=== PATIENT | male | born 1935 | race Caucasian/White ===

== ENCOUNTER 2020-09-26 13:33 | Inpatient (IN) | payer MEDICARE, OTHER ==
[2020-09-26] MEDS ORDERED: ALBUTEROL HFA INHALER INHALATION STA (13:46)
--- NOTE | 2020-09-26 13:50 | ED ---
SOB HPI - General Chief Complaint: Shortness of Breath Stated Complaint: COVID+ Time Seen by Provider: 09/26/20 13:33 Source: patient, EMS Mode of arrival: EMS Limitations: no limitations - History of Present Illness Initial Comments: This is an 84-year-old male known history of COPD and states he was tested positive for Covid 19 2 days ago. By EMS today with complaints of increasing shortness of breath cough with phlegm production exertional dyspnea fevers and generalized weakness. He was found have saturations in the mid to low 80s on room air up to 94% on 5 L of oxygen. He had a temperature of 102.9 upon arrival. No other complaints or modifying factors at this time MD Complaint: shortness of breath, cough - Related Data Home Medications Medication Instructions Recorded Confirmed Albuterol Inhaler [Ventolin Hfa 1 - 2 puff INHALATION RT-QID PRN 09/26/20 09/26/20 Inhaler] Alendronate Sodium 70 mg PO SALVADOR 09/26/20 09/26/20 Aspirin EC [Ecotrin Low Dose] 81 mg PO DAILY 09/26/20 09/26/20 Atorvastatin [Lipitor] 40 mg PO HS 09/26/20 09/26/20 Carvedilol [Coreg] 6.25 mg PO BID 09/26/20 09/26/20 Cholecalciferol [Vitamin D3 (25 5,000 unit PO DAILY 09/26/20 09/26/20 Mcg = 1000 Iu)] Clopidogrel Bisulfate [Plavix] 75 mg PO DAILY 09/26/20 09/26/20 Levothyroxine Sodium [Synthroid] 175 mcg PO DAILY 09/26/20 09/26/20 Losartan/Hydrochlorothiazide 1 tab PO DAILY 09/26/20 09/26/20 [Hyzaar 100-25 Tablet] Magnesium Oxide [Mag-Ox] 250 mg PO DAILY 09/26/20 09/26/20 PARoxetine [Paxil] 20 mg PO HS 09/26/20 09/26/20 Pantoprazole Sodium [Protonix] 40 mg PO DAILY 09/26/20 09/26/20 Allergies Allergy/AdvReac Type Severity Reaction Status Date / Time No Known Allergies Allergy Verified 09/26/20 14:57 Review of Systems ROS Statement: Those systems with pertinent positive or pertinent negative responses have been documented in the HPI. ROS Other: All systems not noted in ROS Statement are negative. Past Medical History Past Medical History: COPD History of Any Multi-Drug Resistant Organisms: None Reported Past Surgical History: Tonsillectomy Additional Past Surgical History / Comment(s): cataracts, eye lid surgery, some sort of bypass in the groin Past Psychological History: Anxiety Smoking Status: Former smoker Past Alcohol Use History: Daily Past Drug Use History: None Reported General Exam - General Exam Comments Initial Comments: This is a well-developed well-nourished awake alert oriented 3 male Limitations: no limitations General appearance: alert Head exam: Present: atraumatic, normocephalic, normal inspection Eye exam: Present: normal appearance, PERRL, EOMI. Absent: scleral icterus, conjunctival injection, periorbital swelling ENT exam: Present: mucous membranes dry Neck exam: Present: normal inspection, full ROM, other (No stridor JVD or bruits). Absent: tenderness, meningismus, lymphadenopathy Respiratory exam: Present: decreased breath sounds. Absent: respiratory distress, wheezes, rales, rhonchi, stridor, chest wall tenderness Cardiovascular Exam: Present: regular rate, normal rhythm, normal heart sounds. Absent: systolic murmur, diastolic murmur, rubs, gallop, clicks GI/Abdominal exam: Present: soft, normal bowel sounds. Absent: distended, tenderness, guarding, rebound, rigid Extremities exam: Present: normal inspection, full ROM, normal capillary refill. Absent: tenderness, pedal edema, joint swelling, calf tenderness Back exam: Present: normal inspection Neurological exam: Present: alert, oriented X3, CN II-XII intact Psychiatric exam: Present: normal affect, normal mood Skin exam: Present: warm, dry, intact, normal color. Absent: rash Course Vital Signs 09/26/20 09/26/20 13:36 16:00 Temperature 102.9 F H 100.8 F H Pulse Rate 82 88 Respiratory 22 18 Rate Blood Pressure 159/75 140/70 O2 Sat by Pulse 94 L 95 Oximetry Medical Decision Making - Lab Data Result diagrams: 09/26/20 13:54 09/26/20 13:54 Lab Results 09/26/20 09/26/20 09/26/20 Range/Units 13:54 13:54 13:54 WBC 10.9 H (3.8-10.6) k/uL RBC 3.95 L (4.30-5.90) m/uL Hgb 13.0 (13.0-17.5) gm/dL Hct 37.7 L (39.0-53.0) % MCV 95.4 (80.0-100.0) fL MCH 32.9 (25.0-35.0) pg MCHC 34.5 (31.0-37.0) g/dL RDW 13.7 (11.5-15.5) % Plt Count 200 (150-450) k/uL MPV 8.9 Neutrophils % 86 % Lymphocytes % 7 % Monocytes % 4 % Eosinophils % 1 % Basophils % 1 % Neutrophils # 9.4 H (1.3-7.7) k/uL Lymphocytes # 0.8 L (1.0-4.8) k/uL Monocytes # 0.4 (0-1.0) k/uL Eosinophils # 0.1 (0-0.7) k/uL Basophils # 0.1 (0-0.2) k/uL PT 10.0 (9.0-12.0) sec INR 1.0 (<1.2) APTT 26.4 (22.0-30.0) sec D-Dimer 0.81 H (<0.60) mg/L FEU Sodium 128 L (137-145) mmol/L Potassium 4.5 (3.5-5.1) mmol/L Chloride 95 L (98-107) mmol/L Carbon Dioxide 22 (22-30) mmol/L Anion Gap 11 mmol/L BUN 37 H (9-20) mg/dL Creatinine 2.12 H (0.66-1.25) mg/dL Est GFR (CKD-EPI)AfAm 33 (>60 ml/min/1.73 sqM) Est GFR (CKD-EPI)NonAf 28 (>60 ml/min/1.73 sqM) Glucose 112 H (74-99) mg/dL Lactic Ac Sepsis Rflx Plasma Lactic Acid Mejia (0.7-2.0) mmol/L Calcium 8.9 (8.4-10.2) mg/dL Magnesium 1.8 (1.6-2.3) mg/dL Total Bilirubin 1.2 (0.2-1.3) mg/dL AST 44 (17-59) U/L ALT 24 (4-49) U/L Alkaline Phosphatase 43 (38-126) U/L Creatine Kinase 740 H (55-170) U/L Troponin I (0.000-0.034) ng/mL NT-Pro-B Natriuret Pep pg/mL Total Protein 6.9 (6.3-8.2) g/dL Albumin 4.0 (3.5-5.0) g/dL 09/26/20 09/26/20 09/26/20 Range/Units 13:54 13:54 13:54 WBC (3.8-10.6) k/uL RBC (4.30-5.90) m/uL Hgb (13.0-17.5) gm/dL Hct (39.0-53.0) % MCV (80.0-100.0) fL MCH (25.0-35.0) pg MCHC (31.0-37.0) g/dL RDW (11.5-15.5) % Plt Count (150-450) k/uL MPV Neutrophils % % Lymphocytes % % Monocytes % % Eosinophils % % Basophils % % Neutrophils # (1.3-7.7) k/uL Lymphocytes # (1.0-4.8) k/uL Monocytes # (0-1.0) k/uL Eosinophils # (0-0.7) k/uL Basophils # (0-0.2) k/uL PT (9.0-12.0) sec INR (<1.2) APTT (22.0-30.0) sec D-Dimer (<0.60) mg/L FEU Sodium (137-145) mmol/L Potassium (3.5-5.1) mmol/L Chloride (98-107) mmol/L Carbon Dioxide (22-30) mmol/L Anion Gap mmol/L BUN (9-20) mg/dL Creatinine (0.66-1.25) mg/dL Est GFR (CKD-EPI)AfAm (>60 ml/min/1.73 sqM) Est GFR (CKD-EPI)NonAf (>60 ml/min/1.73 sqM) Glucose (74-99) mg/dL Lactic Ac Sepsis Rflx Plasma Lactic Acid Mejia 2.5 H* (0.7-2.0) mmol/L Calcium (8.4-10.2) mg/dL Magnesium (1.6-2.3) mg/dL Total Bilirubin (0.2-1.3) mg/dL AST (17-59) U/L ALT (4-49) U/L Alkaline Phosphatase (38-126) U/L Creatine Kinase (55-170) U/L Troponin I <0.012 (0.000-0.034) ng/mL NT-Pro-B Natriuret Pep 604 pg/mL Total Protein (6.3-8.2) g/dL Albumin (3.5-5.0) g/dL 09/26/20 Range/Units 14:38 WBC (3.8-10.6) k/uL RBC (4.30-5.90) m/uL Hgb (13.0-17.5) gm/dL Hct (39.0-53.0) % MCV (80.0-100.0) fL MCH (25.0-35.0) pg MCHC (31.0-37.0) g/dL RDW (11.5-15.5) % Plt Count (150-450) k/uL MPV Neutrophils % % Lymphocytes % % Monocytes % % Eosinophils % % Basophils % % Neutrophils # (1.3-7.7) k/uL Lymphocytes # (1.0-4.8) k/uL Monocytes # (0-1.0) k/uL Eosinophils # (0-0.7) k/uL Basophils # (0-0.2) k/uL PT (9.0-12.0) sec INR (<1.2) APTT (22.0-30.0) sec D-Dimer (<0.60) mg/L FEU Sodium (137-145) mmol/L Potassium (3.5-5.1) mmol/L Chloride (98-107) mmol/L Carbon Dioxide (22-30) mmol/L Anion Gap mmol/L BUN (9-20) mg/dL Creatinine (0.66-1.25) mg/dL Est GFR (CKD-EPI)AfAm (>60 ml/min/1.73 sqM) Est GFR (CKD-EPI)NonAf (>60 ml/min/1.73 sqM) Glucose (74-99) mg/dL Lactic Ac Sepsis Rflx Y Plasma Lactic Acid Mejia (0.7-2.0) mmol/L Calcium (8.4-10.2) mg/dL Magnesium (1.6-2.3) mg/dL Total Bilirubin (0.2-1.3) mg/dL AST (17-59) U/L ALT (4-49) U/L Alkaline Phosphatase (38-126) U/L Creatine Kinase (55-170) U/L Troponin I (0.000-0.034) ng/mL NT-Pro-B Natriuret Pep pg/mL Total Protein (6.3-8.2) g/dL Albumin (3.5-5.0) g/dL - EKG Data -: EKG Interpreted by Me EKG shows normal: sinus rhythm (EKG sinus rhythm with first-degree AV block rate 82. Interval 288 QRS 114 QT since QTC 392/457 left exodeviation incomplete left bundle-branch block) - Radiology Data Radiology results: report reviewed (I did review the pain and report evidence of increase), image reviewed Disposition Clinical Impression: COVID-19, Dyspnea, Febrile illness, acute, Hyponatremia syndrome, Acute bronchospasm, Chronic renal failure syndrome Disposition: ADMITTED IP TO THIS [facility] Condition: Fair Referrals: Nonstaff,Physician [REFERRING] - 1-2 days
[2020-09-26 14:11] LABS: Basophils # (A) 0.1 k/uL (0-0.2); Basophils % (A) 1 %; Eosinophils # (A) 0.1 k/uL (0-0.7); Eosinophils % (A) 1 %; HCT 37.7 % (39.0-53.0); Lymphocytes # (A) 0.8 k/uL (1.0-4.8); Lymphocytes % (A) 7 %; MCH 32.9 pg (25.0-35.0); MCHC 34.5 g/dL (31.0-37.0); MCV 95.4 fL (80.0-100.0); Mean Platelet Volume 8.9; Monocytes # (A) 0.4 k/uL (0-1.0); Monocytes % (A) 4 %; Neutrophils # (A) 9.4 k/uL (1.3-7.7); Neutrophils % (A) 86 %; Platelet Count 200 k/uL (150-450); RBC 3.95 m/uL (4.30-5.90); RDW 13.7 % (11.5-15.5); WBC 10.9 k/uL (3.8-10.6)
--- NOTE | 2020-09-26 14:17 | XR ---
EXAMINATION TYPE: XR chest 2V DATE OF EXAM: 09/26/2020 COMPARISON: NONE HISTORY: Dyspnea. TECHNIQUE: Frontal and lateral views of the chest are obtained. FINDINGS: Cardiomegaly is present with atherosclerotic thoracic aorta. Chronic parenchymal change ba ckground with suspected mild interstitial edema and tiny left pleural effusion. Post surgical change to the thoracolumbar spine is partially imaged. Vertebroplasty suspected level of just above superior site of surgery. Correlate clinically. Advanced degenerative changes bilateral glenohumeral joints. Atherosclerotic change in the abdominal aorta noted on lateral view. IMPRESSION: Chronic changes and cardiomegaly with mild interstitial edema and tiny left pleural effu chely. Correlate for CHF exacerbation.
[2020-09-26 14:24] LABS: Calcium 8.9 mg/dL (8.4-10.2); Magnesium 1.8 mg/dL (1.6-2.3); Total Bilirubin 1.2 mg/dL (0.2-1.3); Total Protein 6.9 g/dL (6.3-8.2)
[2020-09-26 14:32] LABS: Partial Thromboplastin Time 26.4 sec (22.0-30.0)
[2020-09-26 14:38] LABS: D-Dimer 0.81 mg/L FEU (<0.60)
[2020-09-26 14:39] LABS: Potassium 4.5 mmol/L (3.5-5.1)
[2020-09-26] MEDS ORDERED: ACETAMINOPHEN TAB 325 MG TAB PO PRN (16:20)
[2020-09-26] MEDS ORDERED: CHOLECALCIFEROL 1,000 UNIT TAB PO SCH (16:30)
[2020-09-26] MEDS ORDERED: NALOXONE 0.4 MG/ML 1 ML VIAL IV PRN (16:51)
[2020-09-26] MEDS: ZINC SULFATE 220 MG CAP PO SCH (16:55)
[2020-09-26] MEDS: FAMOTIDINE 20 MG TAB PO SCH (16:55)
[2020-09-26] MEDS: ASCORBIC ACID 500 MG TAB PO SCH (16:55)
[2020-09-26] MEDS: DEXAMETHASONE SOD PHOSPHATE 10 MG/ML 1 ML VIAL IV SCH (16:55)
[2020-09-26] MEDS: SODIUM CHLORIDE 0.9% 1,000 ML IV SCH (17:06)
[2020-09-26 17:24] LABS: Magnesium 1.7 mg/dL (1.6-2.3)
[2020-09-26] MEDS ORDERED: ONDANSETRON 4 MG/2 ML VIAL IVP PRN (17:34)
[2020-09-26] MEDS ORDERED: bisacodyL 5 MG TABLET.DR PO PRN (17:34)
[2020-09-26 17:37] LABS: C Reactive Protein 249.8 mg/L (<10.0)
--- NOTE | 2020-09-26 17:42 | P.HPIM ---
History of Present Illness H&P Date: 09/26/20 Chief Complaint: shortness of breath Patient is an 84-year-old male with a history of COPD, hypertension, and peripheral arterial disease who presented to the ER splint shortness of breath. He had been diagnosed with Covid 19 2 days prior to admission. His symptoms had started on 09/21. On arrival to the ER he was found be hypoxic. He was requiring 5 L nasal cannula to sat 94%. Temperature was 102.9. Laboratory analysis showed a white blood cell count 10.9, lymphocytes 0.8, d-dimer 0.81, sodium 128, BUN 37, creatinine 2.12 (patient denies any history of kidney pro blems), lactic acid 2.5, and creatine kinase 740. Influenza A and B were negative. Chest x-ray demonstrated mild interstitial edema with a tiny left pleural effusion and concerns for congestive heart failure. BNP was checked and normal at 604 area is given a dose of albuterol and regions were made for admission. He was diagnosed with Covid 19 pneumonitis as well as hyponatremia, acute kidney injury, and dehydration. He was started on Decadron, albuterol [id number], zinc, vitamin C, vitamin D, Pepcid, and melatonin. Pulmonary was consulted regarding Remdesivir. Patient seen and examined at bedside. He reports that he started noticing symptoms on 09/21. He was having a cough are active of a white sputum, shortness of breath, fatigue, and diffuse muscle cramping. He also noted some fevers and chills at home. His shortness of breath and fatigue worsened and his work of breathing increased today so he presented to the emergency department. He reports that he has not lost his sense of taste or smell however he has had a low appetite and has not been eating or drinking much. He reports that he has not had any nausea, vomiting, or diarrhea. He lives alone and denies any known Covid 19 exposures. Follows with area director of home health sales Follows with area director of home health sales Mary Jaime. Review of Systems Pertinent positives and negatives as discussed in HPI, a complete review of systems was performed and all other systems are negative. Past Medical History Past Medical History: COPD, Hypertension Additional Past Medical History / Comment(s): Hypothyroidism, anxiety, high cholesterol, peripheral arterial disease History of Any Multi-Drug Resistant Organisms: None Reported Past Surgical History: Tonsillectomy Additional Past Surgical History / Comment(s): cataracts, eye lid surgery, arterial bypass in the groin region, spinal fusion Past Psychological History: Anxiety Smoking Status: Former smoker Past Alcohol Use History: None Reported Past Drug Use History: None Reported Additional History: Lives at home alone, uses a cane, not chronically on oxygen Medications and Allergies Home Medications Medication Instructions Recorded Confirmed Type Albuterol Inhaler [Ventolin Hfa 1 - 2 puff INHALATION RT-QID PRN 09/26/20 09/26/20 History Inhaler] Alendronate Sodium 70 mg PO SALVADOR 09/26/20 09/26/20 History Aspirin EC [Ecotrin Low Dose] 81 mg PO DAILY 09/26/20 09/26/20 History Atorvastatin [Lipitor] 40 mg PO HS 09/26/20 09/26/20 History Carvedilol [Coreg] 6.25 mg PO BID 09/26/20 09/26/20 History Cholecalciferol [Vitamin D3 (25 5,000 unit PO DAILY 09/26/20 09/26/20 History Mcg = 1000 Iu)] Clopidogrel Bisulfate [Plavix] 75 mg PO DAILY 09/26/20 09/26/20 History Levothyroxine Sodium [Synthroid] 175 mcg PO DAILY 09/26/20 09/26/20 History Losartan/Hydrochlorothiazide 1 tab PO DAILY 09/26/20 09/26/20 History [Hyzaar 100-25 Tablet] Magnesium Oxide [Mag-Ox] 250 mg PO DAILY 09/26/20 09/26/20 History PARoxetine [Paxil] 20 mg PO HS 09/26/20 09/26/20 History Pantoprazole Sodium [Protonix] 40 mg PO DAILY 09/26/20 09/26/20 History Allergies Allergy/AdvReac Type Severity Reaction Status Date / Time No Known Allergies Allergy Verified 09/26/20 14:57 Physical Exam Osteopathic Statement: *. No significant issues noted on an osteopathic structural exam other than those noted in the History and Physical/Consult. Vitals: Vital Signs Temp Pulse Resp BP Pulse Ox 09/26/20 16:00 100.8 F H 88 18 140/70 95 09/26/20 13:36 102.9 F H 82 22 159/75 94 L Intake and Output 09/26/20 09/26/20 09/26/20 06:59 14:59 22:59 Other: Weight 117.934 kg General: Ill-appearing, moderate distress, appears younger than stated age, diaphoretic Derm: warm, moist Head: atraumatic, normocephalic, symmetric Eyes: EOMI, no lid lag, anicteric sclera, pupils equal round reactive to light ENT: Nose and ears atraumatic, no thrush, no pharyngeal erythema Neck: No thyromegaly, no cervical lymphadenopathy, trachea midline, supple Mouth: no lip lesion, mucus membranes dry Cardiovascular: S1S2 tachycardic, no murmur, positive posterior tibial pulse bilateral, trace edema, capillary refill less than 2 seconds Lungs: Coarse breath sounds bilateral with diffuse wheezing, accessory muscle use with sternal retractions, 3 word conversational dyspnea Abdominal: soft, nontender to palpation, no guarding, no appreciable organomegaly, normal bowel sounds Ext: no gross muscle atrophy, muscle strength muscle strength 5 out of 5 in all 4 extremities, no contractures Neuro: CN II-XI grossly intact, light touch intact all 4 extremities, finger to nose within normal limits, Psych: Alert, oriented, appropriate affect Results CBC & Chem 7: 09/26/20 13:54 09/26/20 13:54 Labs: Abnormal Lab Results - Last 24 Hours (Table) 09/26/20 09/26/20 09/26/20 Range/Units 13:54 13:54 13:54 WBC 10.9 H (3.8-10.6) k/uL RBC 3.95 L (4.30-5.90) m/uL Hct 37.7 L (39.0-53.0) % Neutrophils # 9.4 H (1.3-7.7) k/uL Lymphocytes # 0.8 L (1.0-4.8) k/uL Fibrinogen (200-500) mg/dL D-Dimer 0.81 H (<0.60) mg/L FEU Sodium 128 L (137-145) mmol/L Chloride 95 L (98-107) mmol/L BUN 37 H (9-20) mg/dL Creatinine 2.12 H (0.66-1.25) mg/dL Glucose 112 H (74-99) mg/dL Plasma Lactic Acid Mejia (0.7-2.0) mmol/L Creatine Kinase 740 H (55-170) U/L 09/26/20 09/26/20 Range/Units 13:54 16:44 WBC (3.8-10.6) k/uL RBC (4.30-5.90) m/uL Hct (39.0-53.0) % Neutrophils # (1.3-7.7) k/uL Lymphocytes # (1.0-4.8) k/uL Fibrinogen 597 H (200-500) mg/dL D-Dimer (<0.60) mg/L FEU Sodium (137-145) mmol/L Chloride (98-107) mmol/L BUN (9-20) mg/dL Creatinine (0.66-1.25) mg/dL Glucose (74-99) mg/dL Plasma Lactic Acid Mejia 2.5 H* (0.7-2.0) mmol/L Creatine Kinase (55-170) U/L Chest x-ray: report reviewed, image reviewed (Bilateral interstitial infiltrates) Thrombosis Risk Factor Assmnt - DVT/VTE Prophylaxis DVT/VTE Prophylaxis: Pharmacologic Prophylaxis ordered Assessment and Plan Assessment: Covid 19 pneumonitis, acute hypoxic respiratory failure - Dexamethasone day #11/11 - Remdesivir: Awaiting pulmonary consultation - Convalsecent plasma: not considered at this point - Zinc, vitamin C, vitamin D, Pepcid, melatonin - Albuterol COPD with acute exacerbation -Continue with dexamethasone -Scheduled and when necessary bronchodilators -Pulmonary consultation Hyponatremia secondary to dehydration -IV fluids -Recheck basic metabolic profile in a.m. Acute kidney injury versus chronic kidney disease -No baseline labs -Hold losartan, hydrochlorothiazide -IV fluids -Avoid additional nephrotoxic agents -Repeat basic metabolic profile in a.m. Chronic: Hypertension Peripheral arterial disease Hypothyroidism Hx tobacco abuse The patient is admitted with an anticipated greater than 2 midnight stay for evaluation of Covid 19 pneumonia Surrogate decision-maker: Eldest daughter CODE STATUS: Full DVT prophylaxis: Lovenox Discussed with: Patient, nursing, ED physician Anticipated discharge date: 4-[address]: Home with home health A total of 35 minutes was spent on the care of this complex patient more than 50% of the time was spent in counseling and care coordination.
[2020-09-26] MEDS: ALBUTEROL HFA INHALER INHALATION SCH (19:38)
[2020-09-26] MEDS: carvediloL 6.25 MG TAB PO SCH (19:47)
[2020-09-26] MEDS: ATORVASTATIN 40 MG TAB PO SCH (22:07)
[2020-09-26] MEDS: PARoxetine 20 MG TAB PO SCH (22:07)
[2020-09-26] MEDS: MELATONIN 5 MG TABLET PO SCH (22:08)
[2020-09-26 23:31] LABS: Ferritin 561.4 ng/mL (22.0-322.0)
[2020-09-27] MEDS: SODIUM CHLORIDE 0.9% 1,000 ML IV SCH ×3 (02:55→19:58)
[2020-09-27] MEDS: ALBUTEROL HFA INHALER INHALATION SCH ×5 (03:10→18:53)
[2020-09-27] MEDS ORDERED: LEVOTHYROXINE 75 MCG TAB PO SCH (06:30)
[2020-09-27] MEDS ORDERED: LEVOTHYROXINE 100 MCG TAB PO SCH (06:30)
[2020-09-27 06:57] LABS: Basophils % (A) 0 %; Eosinophils % (A) 0 %; HCT 37.1 % (39.0-53.0); Lymphocytes # (A) 0.8 k/uL (1.0-4.8); Lymphocytes % (A) 8 %; MCH 31.8 pg (25.0-35.0); MCHC 32.4 g/dL (31.0-37.0); MCV 98.1 fL (80.0-100.0); Mean Platelet Volume 9.1; Monocytes # (A) 0.4 k/uL (0-1.0); Monocytes % (A) 5 %; Neutrophils % (A) 86 %; Platelet Count 207 k/uL (150-450); RBC 3.78 m/uL (4.30-5.90); RDW 14.4 % (11.5-15.5); WBC 9.3 k/uL (3.8-10.6)
[2020-09-27] MEDS: FAMOTIDINE 20 MG TAB PO SCH (08:02)
[2020-09-27] MEDS: DEXAMETHASONE SOD PHOSPHATE 10 MG/ML 1 ML VIAL IV SCH (08:02)
[2020-09-27] MEDS: carvediloL 6.25 MG TAB PO SCH ×2 (08:02→16:49)
[2020-09-27] MEDS: ASCORBIC ACID 500 MG TAB PO SCH (08:02)
[2020-09-27] MEDS: ZINC SULFATE 220 MG CAP PO SCH (08:03)
[2020-09-27] MEDS ORDERED: CLOPIDOGREL 75 MG TAB PO SCH (09:00)
[2020-09-27] MEDS ORDERED: PANTOPRAZOLE 40 MG TABLET PO SCH (09:00)
[2020-09-27] MEDS ORDERED: CHOLECALCIFEROL 1,000 UNIT TAB PO SCH (09:00)
[2020-09-27] MEDS ORDERED: LOSARTAN-HCTZ 50-12.5 MG 1 EACH TAB PO SCH (09:00)
[2020-09-27] MEDS ORDERED: ASPIRIN 81 MG PO SCH (09:00)
[2020-09-27] MEDS ORDERED: MAGNESIUM OXIDE 400 MG TAB PO SCH (09:00)
[2020-09-27 09:53] LABS: African American GFR (CKD) 45.8 (60.0-200.0); Albumin 3.7 g/dL (3.80-4.90); Albumin/Globulin Ratio 1.76 (1.60-3.17); Calcium 8.4 mg/dL (8.7-10.3); Globulin 2.1 g/dL (1.6-3.3); Non-African American GFR(CKD) 39.5 (60.0-200.0); Potassium 4.2 mmol/L (3.5-5.5); Total Bilirubin 0.8 mg/dL (0.2-1.2); Total Protein 5.8 g/dL (6.2-8.2)
[2020-09-27 11:10] LABS: C Reactive Protein 256.5 mg/L (<10.0)
[2020-09-27] MEDS ORDERED: REMDESIVIR 200 MG in SODIUM CHLORIDE 0.9% 250 ML IVPB ONE (15:00)
--- NOTE | 2020-09-27 16:28 | P.CNPUL ---
History of Present Illness Consult date: 09/27/20 Requesting physician: Cheryl Bustillo Reason for consult: dyspnea, abnormal CXR/CT Chief complaint: Shortness of breath, cough congestion, CoVID +2 days prior to admission History of present illness: This is a pleasant 84-year-old gentleman who follows with Dr. Johnson as his primary care provider. He has a history of hypertension, hypothyroidism, chronic obstructive pulmonary disease, previous tobacco dependence, anxiety, hyperlipidemia, peripheral arterial disease. 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 Steel Eng[employer]. He is maintained on albuterol in the outpatient setting. He presented to the emergency room yesterday with complaints of increasing shortness of breath cough and congestion. He states he did test positive for CoVID 19 2 days prior to his arrival. Chest x-ray reveals chronic changes and cardiomegaly with mild interstitial edema and tiny left pleural effusion. Correlate for CHF exacerbation. We'll seen today in consultation on the regular medical floor. Awake and alert in no acute distress. Maintaining O2 saturations in the 90s on 5 L/m per nasal cannula. Currently afebrile. He did have a presenting T-max of 102.9. White count 9.3. Hemoglobin 12.0. D-dimer 0.97. Sodium 134. Potassium 4.2. Creatinine 1.6. Troponin 0.049, 0.157. C- reactive protein 256. LDH 920. Ferritin 561. Influenza screen negative. He's been initiated on Decadron, melatonin, vitamin C, vitamin D, Pepcid, zinc. Review of Systems REVIEW OF SYSTEMS: CONSTITUTIONAL: Febrile illness, weakness. Denies any recent significant weight loss or weight gain. EYES: Denies change in vision. EARS, NOSE, MOUTH, THROAT: Denies headaches, denies sore throat. CARDIOVASCULAR: Denies chest pain, palpitations or syncopal episodes. RESPIRATORY: Positive for shortness of breath, cough, congestion no hemoptysis. GASTROINTESTINAL: Denies change in appetite, denies abdominal pain GENITOURINARY: Denies hematuria, denies infections. MUSKULOSKELETAL: Denies pain, denies swelling. INTEGUMENTARY: Denies rash, denies eczema. NEUROLOGICAL: Denies recent memory loss, no recent seizure activity. PSYCHIATRIC: Denies anxiety, denies depression. HEMATOLOGIC/LYMPHATIC: Denies anemia, denies enlarged lymph nodes. Past Medical History Past Medical History: COPD, Hypertension Additional Past Medical History / Comment(s): Hypothyroidism, anxiety, high cholesterol, peripheral arterial disease History of Any Multi-Drug Resistant Organisms: None Reported Past Surgical History: Tonsillectomy Additional Past Surgical History / Comment(s): cataracts, eye lid surgery, arterial bypass in the groin region, spinal fusion Past Anesthesia/Blood Transfusion Reactions: No Reported Reaction Past Psychological History: Anxiety Smoking Status: Former smoker Past Alcohol Use History: None Reported Past Drug Use History: None Reported Medications and Allergies Home Medications Medication Instructions Recorded Confirmed Type Albuterol Inhaler [Ventolin Hfa 1 - 2 puff INHALATION RT-QID PRN 09/26/20 09/26/20 History Inhaler] Alendronate Sodium 70 mg PO SALVADOR 09/26/20 09/26/20 History Aspirin EC [Ecotrin Low Dose] 81 mg PO DAILY 09/26/20 09/26/20 History Atorvastatin [Lipitor] 40 mg PO HS 09/26/20 09/26/20 History Carvedilol [Coreg] 6.25 mg PO BID 09/26/20 09/26/20 History Cholecalciferol [Vitamin D3 (25 5,000 unit PO DAILY 09/26/20 09/26/20 History Mcg = 1000 Iu)] Clopidogrel Bisulfate [Plavix] 75 mg PO DAILY 09/26/20 09/26/20 History Levothyroxine Sodium [Synthroid] 175 mcg PO DAILY 09/26/20 09/26/20 History Losartan/Hydrochlorothiazide 1 tab PO DAILY 09/26/20 09/26/20 History [Hyzaar 100-25 Tablet] Magnesium Oxide [Mag-Ox] 250 mg PO DAILY 09/26/20 09/26/20 History PARoxetine [Paxil] 20 mg PO HS 09/26/20 09/26/20 History Pantoprazole Sodium [Protonix] 40 mg PO DAILY 09/26/20 09/26/20 History Allergies Allergy/AdvReac Type Severity Reaction Status Date / Time No Known Allergies Allergy Verified 09/26/20 14:57 Physical Exam Vitals: Vital Signs Temp Pulse Pulse Resp BP BP Pulse Ox 09/27/20 14:00 98 F 61 120/67 92 L 09/27/20 10:00 99.1 F 78 160/63 94 L 09/27/20 08:00 65 18 09/27/20 05:39 98.1 F 65 18 140/62 94 L 09/27/20 02:00 98.2 F 71 22 102/50 94 L 09/26/20 22:00 99.3 F 77 16 110/70 94 L 09/26/20 19:39 100.2 F H 84 18 143/64 95 Intake and Output 09/27/20 09/27/20 09/27/20 06:59 14:59 22:59 Intake Total 1040 Balance 1040 Intake: Intake, IV Titration 1040 Amount Sodium Chloride 0.9% 1, 1040 000 ml @ 130 mls/hr IV . Q7H42M [facility] Rx#:[id number] Other: Voiding Method Toilet Urinal # Voids 3 3 GENERAL EXAM: Alert, pleasant 84-year-old gentleman, on 5 L nasal cannula with O2 saturation 92%, comfortable in no apparent distress. HEAD: Normocephalic. EYES: Normal reaction of pupils, equal size. NOSE: Clear with pink turbinates. THROAT: No erythema or exudates. NECK: No masses, no JVD. CHEST: No chest wall deformity. LUNGS: Equal air entry with bilateral scattered rhonchi. CVS: S1 and S2 normal with no audible murmur, regular rhythm. ABDOMEN: No hepatosplenomegaly, normal bowel sounds, no guarding or rigidity. SPINE: No scoliosis or deformity SKIN: No rashes CENTRAL NERVOUS SYSTEM: No focal deficits, tone is normal in all 4 extremities. EXTREMITIES: There is no peripheral edema. No clubbing, no cyanosis. Peripheral pulses are intact. Results - Laboratory Findings CBC and BMP: 09/27/20 05:20 09/27/20 05:20 PT/INR, D-dimer PT 10.0 sec (9.0-12.0) 09/26/20 13:54 INR 1.0 (<1.2) 09/26/20 13:54 D-Dimer 0.97 mg/L FEU (<0.60) H 09/27/20 10:06 Abnormal lab findings: Abnormal Labs 09/26/20 09/26/20 09/26/20 13:54 13:54 13:54 WBC 10.9 H RBC 3.95 L Hgb Hct 37.7 L Neutrophils # 9.4 H Lymphocytes # 0.8 L Fibrinogen D-Dimer 0.81 H Sodium 128 L Chloride 95 L BUN 37 H Creatinine 2.12 H Est GFR (CKD-EPI)AfAm Est GFR (CKD-EPI)NonAf Glucose 112 H Plasma Lactic Acid Mejia Calcium Ferritin AST Lactate Dehydrogenase Creatine Kinase 740 H Troponin I C-Reactive Protein Total Protein Albumin 09/26/20 09/26/20 09/26/20 13:54 16:44 16:44 WBC RBC Hgb Hct Neutrophils # Lymphocytes # Fibrinogen 597 H D-Dimer Sodium Chloride BUN Creatinine Est GFR (CKD-EPI)AfAm Est GFR (CKD-EPI)NonAf Glucose Plasma Lactic Acid Mejia 2.5 H* Calcium Ferritin 561.4 H AST Lactate Dehydrogenase 679 H Creatine Kinase 704 H Troponin I C-Reactive Protein 249.8 H Total Protein Albumin 09/26/20 09/27/20 09/27/20 16:44 05:20 05:20 WBC RBC 3.78 L Hgb 12.0 L Hct 37.1 L Neutrophils # 8.0 H Lymphocytes # 0.8 L Fibrinogen D-Dimer Sodium 134 L Chloride BUN 32.0 H Creatinine 1.6 H Est GFR (CKD-EPI)AfAm 45.8 L Est GFR (CKD-EPI)NonAf 39.5 L Glucose 124 H Plasma Lactic Acid Mejia Calcium 8.4 L Ferritin AST 47 H Lactate Dehydrogenase Creatine Kinase Troponin I 0.049 H* C-Reactive Protein Total Protein 5.8 L Albumin 3.70 L 09/27/20 09/27/20 09/27/20 10:06 10:06 10:06 WBC RBC Hgb Hct Neutrophils # Lymphocytes # Fibrinogen D-Dimer 0.97 H Sodium Chloride BUN Creatinine Est GFR (CKD-EPI)AfAm Est GFR (CKD-EPI)NonAf Glucose Plasma Lactic Acid Mejia Calcium Ferritin AST Lactate Dehydrogenase 920 H Creatine Kinase Troponin I 0.157 H* C-Reactive Protein 256.5 H Total Protein Albumin - Diagnostic Findings Chest x-ray: image reviewed Assessment and Plan Assessment: 1 Acute hypoxic respiratory failure secondary to acute CoVID 19 pneumonitis 2 Febrile illness secondary to above, improved 3 Acute exacerbation of chronic obstructive pulmonary disease secondary to above 4 Acute kidney injury 5 Hypertension 6 Hypothyroidism 7 Peripheral arterial disease 8 History of chronic tobacco dependence. Plan: The patient was seen and evaluated by Dr. Richmond Chest x-ray and labs reviewed We will initiate Remdesivir today Continue Decadron, Pepcid, melatonin, vitamin C, vitamin D, zinc Add Lovenox 40 mg subcu daily Repeat chest x-ray, d-dimer, inflammatory markers in a.m. Titrate down the FiO2 as tolerated We will continue to follow and make further recommendations based on his clinical status I, the cosigning physician, performed a history & physical examination of the patient. Lungs sounds with bilateral scattered rhonchi. Maintaining good O2 saturations in the 90s on 5 L/m per nasal cannula. I discussed the assessment and plan of care with my nurse practitioner, Eneida Butt. I attest to the above consultation as dictated by her. Time with Patient: Greater than 30
[2020-09-27] MEDS ORDERED: ENOXAPARIN 40 MG/0.4 ML SYRINGE SQ SCH (16:30)
[2020-09-27] MEDS: ATORVASTATIN 40 MG TAB PO SCH (19:54)
[2020-09-27] MEDS: MELATONIN 5 MG TABLET PO SCH (19:54)
[2020-09-27] MEDS: PARoxetine 20 MG TAB PO SCH (19:54)
--- NOTE | 2020-09-27 20:17 | P.PN ---
Subjective Progress Note Date: 09/27/20 (delayed charting seen at 120 5) Principal diagnosis: shortness of breath Patient is an 84-year-old male with a history of COPD, hypertension, and peripheral arterial disease who presented to the ER splint shortness of breath. He had been diagnosed with Covid 19 2 days prior to admission. His symptoms had started on 09/21. On arrival to the ER he was found be hypoxic. He was requiring 5 L nasal cannula to sat 94%. Temperature was 102.9. Laboratory analysis showed a white blood cell count 10.9, lymphocytes 0.8, d-dimer 0.81, sodium 128, BUN 37, creatinine 2.12 (patient denies any history of kidney problems), lactic acid 2.5, and creatine kinase 740. Influenza A and B were negative. Chest x-ray demonstrated mild interstitial edema with a tiny left pleural effusion and concerns for congestive heart failure. BNP was checked and normal at 604 area is given a dose of albuterol and regions were made for admission. He was diagnosed with Covid 19 pneumonitis as well as hyponatremia, acute kidney injury, and dehydration. He was started on Decadron, albuterol [id number], zinc, vitamin C, vitamin D, Pepcid, and melatonin. Pulmonary was consulted regarding Remdesivir and this was started on 09/27. Patient seen and examined at bedside. His breathing is much better today. No nausea, no vomiting. Feeling improved. Appetite increasing. General: non toxic, no distress, appears at stated age Derm: warm, dry Head: atraumatic, normocephalic, symmetric Eyes: EOMI, no lid lag, anicteric sclera Mouth: no lip lesion, mucus membranes moist Cardiovascular: S1S2 reg, no murmur, positive posterior tibial pulse bilateral, Lungs: course bs bilateral with mild exiratory wheeze , no accessory muscle use Abdominal: soft, nontender to palpation, no guarding, no appreciable organomegaly Ext: no gross muscle atrophy, no edema, no contractures Neuro: CN II-XI grossly intact, no focal neuro deficits Psych: Alert, oriented, appropriate affect Covid 19 pneumonitis, acute hypoxic respiratory failure - Dexamethasone day #2/ - Remdesivir: D # 1 - Convalsecent plasma: not considered at this point - Zinc, vitamin C, vitamin D, Pepcid, melatonin - Albuterol - On 5L NC - pulm recs appreciated - follow COVID labs, elevated troponin, check echo Elevated troponin - anticipate due to COVID - repeat in AM - ASA - Echo in AM COPD with acute exacerbation -Continue with dexamethasone -Scheduled and when necessary bronchodilators -Pulmonary recs appreciated Hyponatremia secondary to dehydration, improving -IV fluids -Recheck basic metabolic profile in a.m. Acute kidney injury versus chronic kidney disease, improving -No baseline labs -Hold losartan, hydrochlorothiazide -IV fluids -Avoid additional nephrotoxic agents -Repeat basic metabolic profile in a.m. Chronic: Hypertension Peripheral arterial disease Hypothyroidism Hx tobacco abuse The patient is admitted with an anticipated greater than 2 midnight stay for evaluation of Covid 19 pneumonia Surrogate decision-maker: Eldest daughter CODE STATUS: Full DVT prophylaxis: Lovenox Discussed with: Patient, nursing, ED physician Anticipated discharge date: 4-[address]: Home with home health A total of 35 minutes was spent on the care of this complex patient more than 50% of the time was spent in counseling and care coordination. Objective - Vital Signs Vital signs: Vital Signs Temp 98.4 F 09/27/20 17:56 Pulse 73 09/27/20 17:56 Resp 18 09/27/20 08:00 BP 161/66 09/27/20 17:56 Pulse Ox 92 L 09/27/20 17:56 Intake & Output 09/27/20 09/27/20 09/28/20 06:59 18:59 06:59 Intake Total 1040 Balance 1040 Weight 117.934 kg Intake: Intake, IV Titration 1040 Amount Sodium Chloride 0.9% 1, 1040 000 ml @ 130 mls/hr IV . Q7H42M [facility] Rx#:[id number] Other: Voiding Method Toilet Toilet Urinal Urinal # Voids 3 1 - Labs CBC & Chem 7: 09/27/20 05:20 09/27/20 05:20 Labs: Abnormal Lab Results - Last 24 Hours (Table) 09/26/20 09/27/20 09/27/20 Range/Units 16:44 05:20 05:20 RBC 3.78 L (4.30-5.90) m/uL Hgb 12.0 L (13.0-17.5) gm/dL Hct 37.1 L (39.0-53.0) % Neutrophils # 8.0 H (1.3-7.7) k/uL Lymphocytes # 0.8 L (1.0-4.8) k/uL D-Dimer (<0.60) mg/L FEU Sodium 134 L (135-145) mmol/L BUN 32.0 H (9.0-27.0) mg/dL Creatinine 1.6 H (0.6-1.5) mg/dL Est GFR (CKD-EPI)AfAm 45.8 L (60.0-200.0) Est GFR (CKD-EPI)NonAf 39.5 L (60.0-200.0) Glucose 124 H (70-110) mg/dL Calcium 8.4 L (8.7-10.3) mg/dL Ferritin 561.4 H (22.0-322.0) ng/mL AST 47 H (14-35) U/L Lactate Dehydrogenase (313-618) U/L Troponin I (0.000-0.034) ng/mL C-Reactive Protein (<10.0) mg/L Total Protein 5.8 L (6.2-8.2) g/dL Albumin 3.70 L (3.80-4.90) g/dL 09/27/20 09/27/20 09/27/20 Range/Units 10:06 10:06 10:06 RBC (4.30-5.90) m/uL Hgb (13.0-17.5) gm/dL Hct (39.0-53.0) % Neutrophils # (1.3-7.7) k/uL Lymphocytes # (1.0-4.8) k/uL D-Dimer 0.97 H (<0.60) mg/L FEU Sodium (135-145) mmol/L BUN (9.0-27.0) mg/dL Creatinine (0.6-1.5) mg/dL Est GFR (CKD-EPI)AfAm (60.0-200.0) Est GFR (CKD-EPI)NonAf (60.0-200.0) Glucose (70-110) mg/dL Calcium (8.7-10.3) mg/dL Ferritin 714.0 H (22.0-322.0) ng/mL AST (14-35) U/L Lactate Dehydrogenase 920 H (313-618) U/L Troponin I 0.157 H* (0.000-0.034) ng/mL C-Reactive Protein 256.5 H (<10.0) mg/L Total Protein (6.2-8.2) g/dL Albumin (3.80-4.90) g/dL
[2020-09-27] MEDS ORDERED: ALPRAZolam 0.25 MG TAB PO STA ×2 (21:57→23:09)
[2020-09-28 00:12] VITALS: TEMP 97.7
[2020-09-28] MEDS ORDERED: ALPRAZolam 0.5 MG TAB PO STA (00:17)
[2020-09-28] MEDS: SODIUM CHLORIDE 0.9% 1,000 ML IV SCH (00:23)
[2020-09-28] MEDS: ALBUTEROL HFA INHALER INHALATION SCH ×2 (01:14→03:02)
[2020-09-28 01:25] LABS: ABG Base Excess -10.3 mmol/L; ABG HCO3 16 mmol/L (21-25); ABG Oxygen Saturation 90.3 % (94-97); ABG PCO2 35 mmHg (35-45); ABG PH 7.28 (7.35-7.45); ABG PO2 68 mmHg (83-108); ABG TCO2 18 mmol/L (19-24); Allen Test Performed? Yes
[2020-09-28 01:31] LABS: Glucose,Whole Blood 191 mg/dL (75-99)
[2020-09-28] MEDS ORDERED: HALOPERIDOL LACTATE 5 MG/ML 1 ML VIAL IM STA (01:48)
[2020-09-28 02:44] VITALS: BP 125/70
[2020-09-28] MEDS ORDERED: CALCIUM CHLORIDE 100 MG/ML 10 ML SYRINGE ONE (04:03)
[2020-09-28] MEDS ORDERED: EPINEPHrine 10 ML SYRINGE (0.1 MG/ML) ONE (04:03)
[2020-09-28] MEDS ORDERED: SODIUM BICARB 8.4% 50 ML SYR (1 MEQ/ML) ONE ×3 (04:03→04:20)
[2020-09-28 04:27] LABS: Glucose,Whole Blood 136 mg/dL (75-99)
[2020-09-28 04:57] VITALS: PULSE 61; RESP 17
--- NOTE | 2020-09-28 05:23 | P.PN ---
Progress Note - Text Progress Note Date: 09/28/20 Rishi Lima Note Initially notified regarding this patient at 11 pm. The patient was anxious with SpO2 90-92% on 5L NC. Xanax was ordered for the patient which did not alleviate his anxiety. The patient was subsequently seen by the television script writer at the bedside at 1:30 am. The patient appeared to be restless with SpO2 92% on 10 L/min non- rebreather. He was not answering questions appropriately and was trying to take off his masks repeatedly. The patient was subsequently ordered 2 mg of IM ativan. As per the RN, the patient gradually became less anxious and was resting comfortably with SpO2 increasing to 94% on the 10L non-rebreather. The patient's last well time was ~ 3:50 when his vitals were measured as SpO2 94% on the non- rebreather with Pulse 61 with the patient resting comfortably and breathing at 17 breaths/minute. The floor RN was subsequently notified by telemetry that the patient had developed bradycardia. He was found to be unresponsive to sternal rub with no pulse. Rishi lima was thereby activated at 4:02 and CPR was initiated. The television script writer arrived on the scene shortly after. The patient was noted to be in asystole on the monitor. He was given Epinephrine IVP x 8, Bicarbonate x 3, and Calcium chloride x 1. The patient was noted to be in asystole, PEA, and junctional rhythms. There was ROSC at 4:27 and subsequent loss of pulse at 4:37. CPR was halted at 4:41 after a total of 29 minutes of CPR. The patient was pronounced at 4:41. Attempts were made to contact the family with voice-mail left. For further details, please refer to code-sheet.
[2020-09-28] MEDS ORDERED: dexAMETHasone 2 MG TAB PO SCH (09:00)
[2020-09-28] MEDS ORDERED: REMDESIVIR 100 MG in SODIUM CHLORIDE 0.9% 250 ML IVPB SCH (15:00)
--- NOTE | 2020-09-28 17:57 | P.DS ---
Providers Date of admission: 09/26/20 16:51 Expected date of discharge: 09/28/20 Attending physician: Cheryl Bustillo DO Consults: 09/26/20 16:22 Consult Physician Stat Consulting Provider: Yo Richmond Reason/Comments: COVID PNA Do you want consulting provider notified?: Yes Primary care physician: Kalie Johnson MD Hospital Course: Discharge Diagnosis: Covid 19 pneumonitis, acute hypoxic respiratory failure Elevated troponin COPD with acute exacerbation Hyponatremia ANN HTN PAD Hypothyroidism Hospital Course: Patient is an 84-year-old male with a history of COPD, hypertension, and peripheral arterial disease who presented to the ER splint shortness of breath. He had been diagnosed with Covid 19 2 days prior to admission. His symptoms had started on 09/21. On arrival to the ER he was found be hypoxic. He was requiring 5 L nasal cannula to sat 94%. Temperature was 102.9. Laboratory analysis showed a white blood cell count 10.9, lymphocytes 0.8, d-dimer 0.81, sodium 128, BUN 37, creatinine 2.12 (patient denies any history of kidney problems), lactic acid 2.5, and creatine kinase 740. Influenza A and B were negative. Chest x-ray demonstrated mild interstitial edema with a tiny left pleural effusion and concerns for congestive heart failure. BNP was checked and normal at 604 area is given a dose of albuterol and regions were made for admission. He was diagnosed with Covid 19 pneumonitis as well as hyponatremia, acute kidney injury, and dehydration. He was started on Decadron, albuterol [id number], zinc, vitamin C, vitamin D, Pepcid, and melatonin. Pulmonary was consulted regarding Remdesivir and this was started on 09/27. He was doing well and on 4L NC. Overnight on 09/27 his breathing worsened and his oxygen requirements went up. He became acutely confused. He required 100% nonrebreather. ABG was obtained which showed a PaO2 of 68 and a pH of 7.28. Bradycardia was noted on his court monitor and nurse in the room to find him unresponsive with no pulse. CODE BLUE was activated and he underwent a total of 29 minutes of CPR he had dropped during one point. He was pronounced at 4:41 AM. A total of 35 minutes of time were spent preparing this complex discharge summary . Plan - Discharge Summary Discharge Rx Participant: No New Discharge Prescriptions: No Action Pantoprazole Sodium [Protonix] 40 mg PO DAILY PARoxetine [Paxil] 20 mg PO HS Magnesium Oxide [Mag-Ox] 250 mg PO DAILY Cholecalciferol [Vitamin D3 (25 Mcg = 1000 Iu)] 5,000 unit PO DAILY Atorvastatin [Lipitor] 40 mg PO HS Aspirin EC [Ecotrin Low Dose] 81 mg PO DAILY Alendronate Sodium 70 mg PO SALVADOR Losartan/Hydrochlorothiazide [Hyzaar 100-25 Tablet] 1 tab PO DAILY Levothyroxine Sodium [Synthroid] 175 mcg PO DAILY Clopidogrel Bisulfate [Plavix] 75 mg PO DAILY Carvedilol [Coreg] 6.25 mg PO BID Albuterol Inhaler [Ventolin Hfa Inhaler] 1 - 2 puff INHALATION RT-QID PRN PRN Reason: Shortness Of Breath Discharge Medication List Albuterol Inhaler [Ventolin Hfa Inhaler] 1 - 2 puff INHALATION RT-QID PRN 09/26/20 [History] Alendronate Sodium 70 mg PO SALVADOR 09/26/20 [History] Aspirin EC [Ecotrin Low Dose] 81 mg PO DAILY 09/26/20 [History] Atorvastatin [Lipitor] 40 mg PO HS 09/26/20 [History] Carvedilol [Coreg] 6.25 mg PO BID 09/26/20 [History] Cholecalciferol [Vitamin D3 (25 Mcg = 1000 Iu)] 5,000 unit PO DAILY 09/26/20 [History] Clopidogrel Bisulfate [Plavix] 75 mg PO DAILY 09/26/20 [History] Levothyroxine Sodium [Synthroid] 175 mcg PO DAILY 09/26/20 [History] Losartan/Hydrochlorothiazide [Hyzaar 100-25 Tablet] 1 tab PO DAILY 09/26/20 [History] Magnesium Oxide [Mag-Ox] 250 mg PO DAILY 09/26/20 [History] PARoxetine [Paxil] 20 mg PO HS 09/26/20 [History] Pantoprazole Sodium [Protonix] 40 mg PO DAILY 09/26/20 [History] Follow up Appointment(s)/Referral(s): Nonstaff,Physician [REFERRING] - 1-2 days Discharge Disposition: - Preliminary Cause of Preliminary Cause of : COVID 19 pneumonia
--- NOTE | 2020-10-03 20:22 | CDI ---
Documentation Clarification Form Date: 10/03/2020 08:04:26 PM From: Cesia Land RN, CCDS Admit Date: 09/26/2020 04:51:00 PM Patient Name: Jerry Lindsay Visit Number: [id number] Discharge Date: 09/28/2020 11:14:00 AM ATTENTION: The Clinical Documentation Specialists (CDI) and [facility] Coding Staff appreciate your assistance in clarifying documentation. Please respond to the clarification below the line at the bottom and electronically sign. The CDI & [facility] Coding staff will review the response and follow-up if needed. Please note: Queries are made part of the Legal Health Record. If you have any questions, please contact the author of this message via ITS. Dr. Chreyl Bustillo Confusion, restlessness, and agitation have been documented in a patient with multiple co-morbid conditions, please provide further specificity to accurately reflect this patient's SOI/ROM History/Risk Factors: Acute hypoxic respiratory failure, ANN, COPD Exacerbation, hyponatremia, HTN, Anxiety Clinical Indicators: 09/28 Code Blue Note: "The patient appeared to be restless with SpO2 92% on 10 L/min non- rebreather. He was not answering questions appropriately and was trying to take off his masks repeatedly." 09/28 D/C Summary: "Overnight on 09/27 his breathing worsened and his oxygen requirements went up. He became acutely confused." 09/26-09/27 Labs: WBC 10.9/6.3, Hgb 13/12, Neutrophils 9.4/8, D-dimer .81/.97, Na+ 128/134, BUN 37/32, Creatinine 2.12/1.6, GFR 28/39.5, Ferritin 561.4/714, LDH 679/920, troponins <.012/.049/.157, CRP 249.8/256.5 09/28 ABG: PH 7.28, pCO2 35, Po2 68, HCO3 16, total CO2 18, O2 Sat 90.3, Base excess 10.3 Infectious process: Covid 19 pneumonia 09/26 CXR: "Chronic changes and cardiomegaly with mild interstitial edema and tiny left pleural effusion. Correlate for CHF exacerbation." Treatment: Increased O2 flow 09/28 Xanax 0.5mg PO OT 09/28 Haldol 2mg IM OOT In your professional opinion, please clarify the etiology of the confusion and restlessness, if known. Metabolic Encephalopathy (specify Underlying Medical Illness) Hypoxic Encephalopathy (specify Underlying Medical Illness) Other condition (please specify) Unable to determine (Last Revision: January 2018) Metabolic Encephalopathy due to COVID-19 MTDD
--- NOTE | 2020-10-03 20:31 | CDI ---
Documentation Clarification Form Mortality Review Date: 10/03/2020 08:27:49 PM From: Cesia Land RN, CCDS Admit Date: 09/26/2020 04:51:00 PM Patient Name: Jerry Lindsay Visit Number: [id number] Discharge Date: 09/28/2020 11:14:00 AM ATTENTION: The Clinical Documentation Specialists (CDI) and [facility] Coding Staff appreciate your assistance in clarifying documentation. Please respond to the clarification below the line at the bottom and electronically sign. The CDI & [facility] Coding staff will review the response and follow-up if needed. Please note: Queries are made part of the Legal Health Record. If you have any questions, please contact the author of this message via ITS. Dr. Cheryl Bustillo CKD is documented in the H&P and Progress note and requires further specificity to accurately reflect patient SOI/ROM. History/Risk Factors: Patients Historical BUN/CR/GFR- no previous Lab Work at [facility] HTN, PAD Clinical Indicators: Current BUN/CR/GFR 09/26: 37/2.10/29 09/27: 32/1.6/39.5 09/26 Ed Note: "Chronic renal failure syndrome." 09/26 H&P and 09/27 Progress Note: "Acute kidney injury versus chronic kidney disease, improving -No baseline labs." Treatment: 0.9% NS@ 130 cc/hr. In order to capture the severity of condition, please clarify the stage of the CKD, if known: CKD Stage 1 (GFR > 90) CKD Stage 2 (GFR 60-89) CKD Stage 3a (GFR 45-59) CKD Stage 3b (GFR 30-44) CKD Stage 4 (GFR 15-29) CKD ruled out Other, please specify Unable to determine [Template last reviewed: July 2020] Unable to determine as per my notes I documented ANN not CKD MTDD
== END 2020-09-28 11:14 | disposition expired | DRG 177 ==
LOC: EC 13:33 → 4SSUR 16:51
PROVIDERS: ADMIT Internal Medicine; ATTEND Internal Medicine
PROC: XW033E5 Introduction of Remdesivir Anti-infective into Peripheral Vein, Percutaneous Approach, New Technology Group 5 (ICD-10-PCS; 2020-09-26)
PROC: 5A12012 Performance of Cardiac Output, Single, Manual (ICD-10-PCS; principal; 2020-09-28)
DX: U07.1 COVID-19 (principal); J12.89 Other viral pneumonia; J96.01 Acute respiratory failure with hypoxia; G93.41 Metabolic encephalopathy; E87.1 Hypo-osmolality and hyponatremia; J44.0 Chronic obstructive pulmonary disease with (acute) lower respiratory infection; J44.1 Chronic obstructive pulmonary disease with (acute) exacerbation; N17.9 Acute kidney failure, unspecified; E87.2 Acidosis; I46.9 Cardiac arrest, cause unspecified; E03.9 Hypothyroidism, unspecified; E78.00 Pure hypercholesterolemia, unspecified; E78.5 Hyperlipidemia, unspecified; E86.0 Dehydration; F41.9 Anxiety disorder, unspecified; I73.9 Peripheral vascular disease, unspecified; N18.9 Chronic kidney disease, unspecified; I12.9 Hypertensive chronic kidney disease with stage 1 through stage 4 chronic kidney disease, or unspecified chronic kidney disease; Z90.89 Acquired absence of other organs; Z98.1 Arthrodesis status; Z98.49 Cataract extraction status, unspecified eye; R79.89 Other specified abnormal findings of blood chemistry; I44.7 Left bundle-branch block, unspecified; R45.1 Restlessness and agitation; I44.0 Atrioventricular block, first degree; Z79.02 Long term (current) use of antithrombotics/antiplatelets; Z79.82 Long term (current) use of aspirin; Z79.890 Hormone replacement therapy; Z79.899 Other long term (current) drug therapy; Z87.891 Personal history of nicotine dependence
CPT/HCPCS: 36415; 36600; 71046; 80053; 82550; 82728; 82805; 83605; 83615; 83735; 83880; 84484; 85025; 85379; 85384; 85610; 85730; 86140; 87070; 87205; 87502; 93005; 94640; 99285